=== PATIENT | female | born 1965 | race Two or more races ===

== ENCOUNTER 2016-12-14 10:16 | Emergency (ER) | payer BC, OTHER ==
[~2016-12-14] VITALS: Ht 160 cm; Wt 74.8 kg
[2016-12-14] MEDS ORDERED: KETOROLAC TROMETH 60MG/2ML VIAL IM ONE (10:45)
[2016-12-14 12:29] VITALS: BP 145/78
== END 2016-12-14 13:07 | disposition home or self-care (01) ==
LOC: ER 10:16
DX: M43.12 Spondylolisthesis, cervical region (principal); I10 Essential (primary) hypertension; R11.0 Nausea; R42 Dizziness and giddiness; Z90.49 Acquired absence of other specified parts of digestive tract
CPT/HCPCS: 70450; 70490; 96372; 99284; J1885

== ENCOUNTER 2017-03-05 11:41 | Inpatient (IN) | payer BC ==
[~2017-03-05] VITALS: Ht 160 cm; Wt 76.9 kg
[2017-03-05 12:32] LABS: Basophils # (auto) 0 uL; Basophils % (auto) 0.6 % (0.0-2.0); Eosinophils # (auto) 0.1 uL; Eosinophils % (auto) 1.1 % (0.0-7.0); Hematocrit 39.5 % (36.0-46.0); Hemoglobin 13.7 g/dL (12.2-16.2); Lymphocytes # (auto) 2.3 uL; Lymphocytes % (auto) 32.8 % (10.0-50.0); Mean Corpuscular Hemoglobin 30.9 pg (28.0-32.0); Mean Corpuscular Hgb Conc. 34.6 g/dL (32.0-36.0); Mean Corpuscular Volume 89.4 fL (80.0-100.0); Mean Platelet Volume 9.3 fL (6.9-10.8); Monocytes # (auto) 0.3 uL; Monocytes % (auto) 4.2 % (0.0-12.0); Neutrophils # (auto) 4.3 uL; Neutrophils % (auto) 61.3 % (37.0-80.0); Nucleated Red Blood Cells % 0.1 %; Platelet Count (auto) 204 10^3/uL (140-450); Red Cell Distribution Width 13.3 % (11.8-14.3)
[2017-03-05 12:41] LABS: Urine Bilirubin Negative (Negative); Urine Blood Negative /uL (Negative); Urine Color Yellow (Yellow); Urine Glucose Normal (Normal); Urine Ketone Negative (Negative); Urine Mucus FEW (None Seen); Urine Nitrite Negative (Negative); Urine RBC 1 /hpf (0 - 4); Urine Squamous Epithelial Cell FEW /hpf (<5)
[2017-03-05 12:47] LABS: Albumin 3.8 g/dL (3.4-5.0); BUN/Creatinine Ratio 15.1; Bilirubin, Total 0.4 mg/dL (0.2-1.0); Calcium 8.8 mg/dL (8.5-10.1); Potassium 3.6 mmol/L (3.5-5.1); Total Protein 7.7 g/dL (6.4-8.2)
[2017-03-05] MEDS ORDERED: SODIUM CHLORIDE 0.9% 1,000 ML IV ONE (13:35)
[2017-03-05 14:04] LABS: INR 0.92 (0.9-1.15); Partial Thromboplastin Time 26.1 sec (22.64-33.71)
[2017-03-05] MEDS ORDERED: LORazepam 2MG/ML-1ML VIAL IV PRN (14:30)
[2017-03-05] MEDS ORDERED: HYDROcodone-ACET 5/325MG TAB PO ONE (14:30)
[2017-03-05] MEDS ORDERED: ATORVASTATIN 20 MG TAB PO ONE (14:30)
[2017-03-05 14:34] LABS: Magnesium 2.3 mg/dL (1.6-2.6)
[2017-03-05] MEDS: ASPirin-EC 81 mg tab PO SCH (14:52)
[2017-03-05 14:56] LABS: Cholesterol 190 mg/dL (< 200); Triglycerides 545 mg/dL (< 150)
[2017-03-05 14:57] LABS: HDL Cholesterol 30 mg/dL (40-59)
[2017-03-05] MEDS: SODIUM CHLORIDE 0.9% 1,000 ML IV SCH (15:01)
[2017-03-05] MEDS ORDERED: MORPHINE SULF INJ 2 MG/ML SYRINGE 1ML IV PRN (15:15)
[2017-03-05] MEDS ORDERED: NITROGLYCERIN 0.4 MG SL TAB SL PRN (15:15)
[2017-03-05] MEDS ORDERED: cefTRIAXone 1GM/50ML D5W 50 ML IV ONE (15:15)
[2017-03-05] MEDS ORDERED: LACTULOSE 20Gm/30ML SOLN PO PRN (15:15)
[2017-03-05] MEDS ORDERED: ACETAMINOPHEN 500 MG TAB PO PRN (15:15)
[2017-03-05] MEDS ORDERED: LORazepam 0.5 MG TAB PO PRN (15:15)
[2017-03-05 17:15] VITALS: BP 117/74
[2017-03-05 17:17] VITALS: BP 117/74
[2017-03-05] MEDS: HYDROcodone-ACET 5/325MG TAB PO PRN (19:48)
[2017-03-05] MEDS: MORPHINE SULF INJ 2 MG/ML SYRINGE 1ML IV PRN (21:55)
[2017-03-05 22:00] VITALS: BP 117/65
[2017-03-05] MEDS: TEMAZEPAM 15 MG CAP PO PRN (23:26)
[2017-03-06] MEDS: LORazepam 2MG/ML-1ML VIAL IV PRN ×3 (00:57→20:13)
[2017-03-06 05:00] VITALS: BP 111/58
[2017-03-06] MEDS: SODIUM CHLORIDE 0.9% 1,000 ML IV SCH ×2 (06:19→16:09)
[2017-03-06] MEDS ORDERED: LEV100T PO (07:37)
[2017-03-06] MEDS ORDERED: OME20T PO (07:37)
[2017-03-06] MEDS ORDERED: LISI40TA PO (07:37)
[2017-03-06] MEDS ORDERED: AML5T PO (07:37)
[2017-03-06] MEDS ORDERED: HYDR-391 PO (07:37)
[2017-03-06 08:00] VITALS: BP 122/71
[2017-03-06 09:00] VITALS: BP 122/71
[2017-03-06] MEDS: cefTRIAXone 1GM/50ML D5W 50 ML IV SCH (09:49)
[2017-03-06] MEDS: ASPirin-EC 81 mg tab PO SCH (09:49)
[2017-03-06] MEDS: ENOXAPARIN SOD 40 MG/0.4 ML SYRINGE SC SCH (09:50)
[2017-03-06] MEDS ORDERED: METH-562 PO (09:57)
[2017-03-06] MEDS ORDERED: ALPR0.25 PO (09:57)
[2017-03-06 13:00] VITALS: BP_SYST 110; BP_SYST 120; BP_DIAS 53; BP_DIAS 72
[2017-03-06 17:00] VITALS: BP 114/74
[2017-03-06 22:00] VITALS: BP 138/79
[2017-03-06] MEDS: TEMAZEPAM 15 MG CAP PO PRN (22:07)
[2017-03-07 05:13] VITALS: BP 100/62
[2017-03-07] MEDS: LEVOTHYROXINE SODIUM 100 MCG TAB PO SCH (05:44)
[2017-03-07] MEDS: SODIUM CHLORIDE 0.9% 1,000 ML IV SCH ×2 (05:44→21:02)
[2017-03-07 07:23] VITALS: BP 115/71
[2017-03-07] MEDS: LORazepam 2MG/ML-1ML VIAL IV PRN (09:00)
[2017-03-07] MEDS: cefTRIAXone 1GM/50ML D5W 50 ML IV SCH (09:00)
[2017-03-07] MEDS: ASPirin-EC 81 mg tab PO SCH (09:46)
[2017-03-07] MEDS: amLODIPine BESYLATE 5 MG TAB PO SCH (09:47)
[2017-03-07] MEDS: METHOCARBAMOL 500 MG TAB PO SCH (09:48)
[2017-03-07] MEDS: LISINOPRIL 20 MG TAB PO SCH ×2 (09:52→11:01)
[2017-03-07] MEDS: ENOXAPARIN SOD 40 MG/0.4 ML SYRINGE SC SCH (09:52)
[2017-03-07] MEDS: HYDROcodone-ACET 5/325MG TAB PO PRN (11:02)
[2017-03-07] MEDS ORDERED: GADOPENTETATE DIMEGLUMINE (10MMOL/20 ML) VIAL IV ONE (11:39)
[2017-03-07] MEDS ORDERED: LORazepam 2MG/ML-1ML VIAL IV ONE (11:45)
[2017-03-07 13:35] VITALS: BP 107/74
[2017-03-07 17:10] VITALS: BP 120/71
[2017-03-07] MEDS: KETOROLAC TROMETH 30 MG/ML 1ML VIAL IV PRN (21:30)
[2017-03-07 22:00] VITALS: BP 121/82
[2017-03-07] MEDS: TEMAZEPAM 15 MG CAP PO PRN (22:22)
[2017-03-08 05:00] VITALS: BP 108/61
[2017-03-08] MEDS: SODIUM CHLORIDE 0.9% 1,000 ML IV SCH ×2 (05:26→18:22)
[2017-03-08] MEDS: LEVOTHYROXINE SODIUM 100 MCG TAB PO SCH (05:54)
[2017-03-08 08:57] VITALS: BP 106/62
[2017-03-08] MEDS: cefTRIAXone 1GM/50ML D5W 50 ML IV SCH (09:38)
[2017-03-08] MEDS: ASPirin-EC 81 mg tab PO SCH (09:38)
[2017-03-08] MEDS: METHOCARBAMOL 500 MG TAB PO SCH (09:39)
[2017-03-08] MEDS: ENOXAPARIN SOD 40 MG/0.4 ML SYRINGE SC SCH (09:40)
[2017-03-08] MEDS: amLODIPine BESYLATE 5 MG TAB PO SCH (09:49)
[2017-03-08 13:00] VITALS: BP 128/81
[2017-03-08] MEDS: KETOROLAC TROMETH 30 MG/ML 1ML VIAL IV PRN ×2 (14:45→16:51)
[2017-03-08 16:36] VITALS: BP 133/82
[2017-03-08] MEDS: MORPHINE SULF INJ 2 MG/ML SYRINGE 1ML IV PRN ×2 (16:52→21:36)
[2017-03-08] MEDS: METOCLOPRAMIDE HCL 10 MG TAB PO SCH (21:34)
[2017-03-08] MEDS: SERTRALINE HCL 50 MG TAB PO SCH (21:35)
[2017-03-08] MEDS: HYDROcodone-ACET 5/325MG TAB PO PRN (21:35)
[2017-03-08] MEDS: PROMETHAZINE HCL 25 MG/ML 1ML IV PRN (21:35)
[2017-03-08] MEDS: TEMAZEPAM 15 MG CAP PO PRN (21:35)
[2017-03-08] MEDS: DEXAMETHASONE INJECTION 10 MG in D5W 5% 50 ML IV SCH (21:37)
[2017-03-08 22:00] VITALS: BP 127/71
[2017-03-09 05:00] VITALS: BP 90/56
[2017-03-09] MEDS: METOCLOPRAMIDE HCL 10 MG TAB PO SCH ×2 (06:00→08:18)
[2017-03-09] MEDS: LEVOTHYROXINE SODIUM 100 MCG TAB PO SCH ×2 (06:00→08:19)
[2017-03-09] MEDS: SODIUM CHLORIDE 0.9% 1,000 ML IV SCH ×2 (06:02→19:07)
[2017-03-09 08:00] VITALS: BP 119/70
[2017-03-09 08:30] VITALS: BP 119/70
[2017-03-09] MEDS: LISINOPRIL 20 MG TAB PO SCH (09:29)
[2017-03-09] MEDS: ENOXAPARIN SOD 40 MG/0.4 ML SYRINGE SC SCH (09:29)
[2017-03-09] MEDS: cefTRIAXone 1GM/50ML D5W 50 ML IV SCH (09:29)
[2017-03-09] MEDS: ASPirin-EC 81 mg tab PO SCH (09:30)
[2017-03-09] MEDS: amLODIPine BESYLATE 5 MG TAB PO SCH (09:30)
[2017-03-09] MEDS: METHOCARBAMOL 500 MG TAB PO SCH (09:40)
[2017-03-09 12:07] LABS: Anticardiolipin IgM Antibody <9 MPL U/mL (0-12)
[2017-03-09] MEDS: HYDROcodone-ACET 5/325MG TAB PO PRN ×2 (12:09→20:56)
[2017-03-09] MEDS: PROMETHAZINE HCL 25 MG/ML 1ML IV PRN ×2 (12:09→20:57)
[2017-03-09] MEDS: MORPHINE SULF INJ 2 MG/ML SYRINGE 1ML IV PRN ×2 (12:09→20:57)
[2017-03-09 12:39] VITALS: BP 116/71
[2017-03-09 17:27] VITALS: BP 118/67
[2017-03-09] MEDS: SERTRALINE HCL 50 MG TAB PO SCH (20:56)
[2017-03-09] MEDS: DEXAMETHASONE INJECTION 10 MG in D5W 5% 50 ML IV SCH (20:57)
[2017-03-09] MEDS: TEMAZEPAM 15 MG CAP PO PRN (20:57)
[2017-03-09 23:16] VITALS: BP 124/77
[2017-03-10 03:07] LABS: Protein S Antigen Free 105 % (57-157); Proten S Antigen Total 94 % (60-150)
[2017-03-10] MEDS: PROMETHAZINE HCL 25 MG/ML 1ML IV PRN ×3 (05:00→14:09)
[2017-03-10] MEDS: HYDROcodone-ACET 5/325MG TAB PO PRN ×2 (05:00→14:09)
[2017-03-10] MEDS: MORPHINE SULF INJ 2 MG/ML SYRINGE 1ML IV PRN ×3 (05:00→14:10)
[2017-03-10 05:28] VITALS: BP 103/66
[2017-03-10] MEDS: SODIUM CHLORIDE 0.9% 1,000 ML IV SCH (05:47)
[2017-03-10] MEDS: LEVOTHYROXINE SODIUM 100 MCG TAB PO SCH (06:18)
[2017-03-10] MEDS: METOCLOPRAMIDE HCL 10 MG TAB PO SCH ×2 (06:19→06:21)
[2017-03-10] MEDS: KETOROLAC TROMETH 30 MG/ML 1ML VIAL IV PRN (06:20)
[2017-03-10 09:00] VITALS: BP 106/69
[2017-03-10] MEDS: METHOCARBAMOL 500 MG TAB PO SCH (09:28)
[2017-03-10] MEDS: cefTRIAXone 1GM/50ML D5W 50 ML IV SCH (09:28)
[2017-03-10] MEDS: amLODIPine BESYLATE 5 MG TAB PO SCH (09:29)
[2017-03-10] MEDS: ASPirin-EC 81 mg tab PO SCH (09:29)
[2017-03-10] MEDS: LISINOPRIL 20 MG TAB PO SCH (09:30)
[2017-03-10] MEDS: ENOXAPARIN SOD 40 MG/0.4 ML SYRINGE SC SCH (09:30)
[2017-03-10 13:00] VITALS: BP 99/53
[2017-03-10] MEDS ORDERED: CYANOCOBALAMIN (B-12) 1000 MCG/1 ML VIAL SUBCUT ONE (13:00)
[2017-03-10] MEDS ORDERED: CYAN100023 PO (13:02)
[2017-03-10] MEDS ORDERED: GEMF600T3 PO (13:02)
[2017-03-10] MEDS ORDERED: SERT-138 PO (13:08)
[2017-03-10 14:34] VITALS: BP 104/68
== END 2017-03-10 17:47 | disposition home or self-care (01) | DRG 103 ==
LOC: ER 11:41 → TELE 11:42 → TELE-WESTW 17:15 → WEST WING 03-08 04:14
PROVIDERS: ADMIT Internal Medicine; ATTEND Internal Medicine
DX: G43.909 Migraine, unspecified, not intractable, without status migrainosus (principal); G81.94 Hemiplegia, unspecified affecting left nondominant side; E03.9 Hypothyroidism, unspecified; I10 Essential (primary) hypertension; H53.8 Other visual disturbances; M79.7 Fibromyalgia; E53.8 Deficiency of other specified B group vitamins; E78.1 Pure hyperglyceridemia; F41.9 Anxiety disorder, unspecified; H54.62 Unqualified visual loss, left eye, normal vision right eye; E66.3 Overweight; R29.810 Facial weakness; Z83.3 Family history of diabetes mellitus; Z82.3 Family history of stroke; Z82.49 Family history of ischemic heart disease and other diseases of the circulatory system; Z90.710 Acquired absence of both cervix and uterus; Z90.49 Acquired absence of other specified parts of digestive tract; Z68.30 Body mass index [BMI] 30.0-30.9, adult; Z79.82 Long term (current) use of aspirin; Z79.899 Other long term (current) drug therapy; Z98.51 Tubal ligation status
CPT/HCPCS: 36415; 70450; 70553; 71020; 80053; 80061; 80307; 81001; 81241; 82550; 82607; 82962; 83735; 84439; 84443; 84481; 84484; 85025; 85301; 85302; 85303; 85305; 85306; 85610; 85613; 85652; 85670; 85705; 85730; 85732; 86038; 86147; 87086; 93005; 93306; 93886; 94761; 96361; 96365; J0696; J1100; J1885; J7060

== ENCOUNTER → 2017-04-14 | Outpatient (CLI) | payer BC ==
[~2017-04-14] MED LIST: ALPR0.25 PO; CYAN100023 PO; GEMF600T3 PO; HYDR-391 PO; LEV100T PO; METH-562 PO; OME20T PO; SERT-138 PO
[2017-04-14 13:06] LABS: Basophils # (auto) 0 uL; Basophils % (auto) 0.7 % (0.0-2.0); Eosinophils # (auto) 0.1 uL; Eosinophils % (auto) 1.4 % (0.0-7.0); Hematocrit 38.4 % (36.0-46.0); Hemoglobin 13.1 g/dL (12.2-16.2); Lymphocytes # (auto) 2.3 uL; Lymphocytes % (auto) 34.6 % (10.0-50.0); Mean Corpuscular Hemoglobin 30.7 pg (28.0-32.0); Mean Corpuscular Hgb Conc. 34.1 g/dL (32.0-36.0); Mean Corpuscular Volume 90.1 fL (80.0-100.0); Mean Platelet Volume 10.7 fL (6.9-10.8); Monocytes # (auto) 0.3 uL; Monocytes % (auto) 4.2 % (0.0-12.0); Neutrophils % (auto) 59.1 % (37.0-80.0); Platelet Count (auto) 199 10^3/uL (140-450); Red Cell Distribution Width 13.8 % (11.8-14.3); White Blood Cell 6.8 10^3/uL (4.4-10.8)
[2017-04-14 13:08] LABS: Albumin 3.7 g/dL (3.4-5.0); BUN/Creatinine Ratio 9.5; Calcium 9.2 mg/dL (8.5-10.1); Potassium 4.1 mmol/L (3.5-5.1)
[2017-04-14 13:11] LABS: Bilirubin, Total 0.4 mg/dL (0.2-1.0); Total Protein 7.6 g/dL (6.4-8.2)
[2017-04-14 15:18] LABS: Urine Bilirubin Negative (Negative); Urine Blood Negative /uL (Negative); Urine Color Yellow (Yellow); Urine Glucose Normal (Normal); Urine Ketone Negative (Negative); Urine Mucus FEW (None Seen); Urine Nitrite Negative (Negative); Urine RBC 2 /hpf (0 - 4); Urine Squamous Epithelial Cell FEW /hpf (<5); Urine Urobilinogen Normal (Negative); Urine pH 5.5 (5.0-8.0)
== END | disposition home or self-care (01) ==
LOC: LAB 11:36
PROVIDERS: ATTEND Nurse Practitioner
DX: I10 Essential (primary) hypertension (principal); H53.9 Unspecified visual disturbance; E03.9 Hypothyroidism, unspecified; R29.810 Facial weakness
CPT/HCPCS: 36415; 80053; 81001; 84443; 84481; 85025

== ENCOUNTER → 2017-04-18 | Outpatient (CLI) | payer BC ==
[2017-04-18 14:42] LABS: Albumin 3.7 g/dL (3.4-5.0); BUN/Creatinine Ratio 8.3; Bilirubin, Total 0.5 mg/dL (0.2-1.0); Calcium 8.8 mg/dL (8.5-10.1); Potassium 3.9 mmol/L (3.5-5.1); Total Protein 7.7 g/dL (6.4-8.2)
== END | disposition home or self-care (01) ==
LOC: LAB 12:23
PROVIDERS: ATTEND Nurse Practitioner
DX: N18.3 Chronic kidney disease, stage 3 (moderate) (principal); R79.89 Other specified abnormal findings of blood chemistry
CPT/HCPCS: 36415; 80053; 83036

== ENCOUNTER → 2017-05-19 | Outpatient (CLI) | payer BC ==
[~2017-05-19] MED LIST changes: -HYDR-391 PO; +HYDR-392 PO
== END | disposition home or self-care (01) ==
LOC: LAB 16:19
PROVIDERS: ATTEND Internal Medicine
DX: N39.0 Urinary tract infection, site not specified (principal)
CPT/HCPCS: 87086

== ENCOUNTER → 2017-05-27 | Outpatient (CLI) | payer BC ==
[2017-05-27 11:28] LABS: Basophils # (auto) 0 uL; Basophils % (auto) 0.3 % (0.0-2.0); Eosinophils # (auto) 0.1 uL; Eosinophils % (auto) 1.4 % (0.0-7.0); Hemoglobin 13.9 g/dL (12.2-16.2); Lymphocytes # (auto) 2.8 uL; Lymphocytes % (auto) 40.9 % (10.0-50.0); Mean Corpuscular Hemoglobin 30.6 pg (28.0-32.0); Mean Corpuscular Volume 90.1 fL (80.0-100.0); Monocytes # (auto) 0.3 uL; Monocytes % (auto) 4.7 % (0.0-12.0); Neutrophils # (auto) 3.6 uL; Neutrophils % (auto) 52.7 % (37.0-80.0); Nucleated Red Blood Cells % 0.1 %; Platelet Count (auto) 232 10^3/uL (140-450); Red Blood Cells 4.55 10^6/uL (4.0-5.20); Red Cell Distribution Width 13.4 % (11.8-14.3); White Blood Cell 6.9 10^3/uL (4.4-10.8)
== END | disposition home or self-care (01) ==
LOC: LAB 10:50
PROVIDERS: ATTEND Family Medicine
DX: H53.9 Unspecified visual disturbance (principal)
CPT/HCPCS: 36415; 85025; 85652; 86141; 86225; 86235

== ENCOUNTER → 2017-06-15 | Outpatient (CLI) | payer BC ==
[2017-06-15 15:35] LABS: Urine Bacteria NONE SEEN /hpf (None Seen); Urine Blood Negative /uL (Negative); Urine Specific Gravity 1.003 (1.001-1.035); Urine WBC 1 /hpf (0 - 5)
[2017-06-15 15:39] LABS: Basophils # (auto) 0.1 uL; Basophils % (auto) 0.9 % (0.0-2.0); Eosinophils # (auto) 0.1 uL; Eosinophils % (auto) 1.4 % (0.0-7.0); Hematocrit 39.6 % (36.0-46.0); Hemoglobin 13.5 g/dL (12.2-16.2); Lymphocytes # (auto) 2.5 uL; Mean Corpuscular Hemoglobin 30.8 pg (28.0-32.0); Mean Corpuscular Volume 90.5 fL (80.0-100.0); Monocytes # (auto) 0.4 uL; Monocytes % (auto) 5.4 % (0.0-12.0); Neutrophils # (auto) 3.5 uL; Neutrophils % (auto) 54.3 % (37.0-80.0); Nucleated Red Blood Cells % 0.1 %; Platelet Count (auto) 240 10^3/uL (140-450); Red Blood Cells 4.37 10^6/uL (4.0-5.20); White Blood Cell 6.5 10^3/uL (4.4-10.8)
[2017-06-15 16:13] LABS: BUN/Creatinine Ratio 12.5; Calcium 8.8 mg/dL (8.5-10.1); Potassium 3.3 mmol/L (3.5-5.1); Uric Acid 4.3 mg/dL (2.6-6.0)
[2017-06-15 16:15] LABS: Creatinine, Urine 53 mg/dL (30.0-125.0); Protein, Urine < 5.0 mg/dL (0.0-11.9)
[2017-06-16 09:13] LABS: Hepatitis B Surface Antibody Negative
[2017-06-16 09:32] LABS: Hepatitis B Surface Antigen Negative (Negative)
[2017-06-16 09:53] LABS: Hepatitis C Antibody Negative (Negative)
== END | disposition home or self-care (01) ==
LOC: LAB 14:52
PROVIDERS: ATTEND Internal Medicine
DX: N18.3 Chronic kidney disease, stage 3 (moderate) (principal); D63.1 Anemia in chronic kidney disease; B17.9 Acute viral hepatitis, unspecified; M05.9 Rheumatoid arthritis with rheumatoid factor, unspecified; M10.9 Gout, unspecified; E55.9 Vitamin D deficiency, unspecified; R80.9 Proteinuria, unspecified; R79.82 Elevated C-reactive protein (CRP); R70.0 Elevated erythrocyte sedimentation rate
CPT/HCPCS: 36415; 80069; 81001; 82306; 82570; 83520; 84156; 84550; 85025; 85652; 86160; 86162; 86225; 86235; 86256; 86706; 86803; 87340

== ENCOUNTER 2017-12-28 01:48 | Emergency (ER) | payer BC, OTHER ==
[~2017-12-28] VITALS: Ht 160 cm; Wt 68.9 kg
[2017-12-28 02:26] LABS: Basophils # (auto) 0.2 uL; Basophils % (auto) 1.3 % (0.0-2.0); Eosinophils # (auto) 0 uL; Eosinophils % (auto) 0.2 % (0.0-7.0); Hematocrit 40.6 % (36.0-46.0); Hemoglobin 14.3 g/dL (12.2-16.2); Lymphocytes # (auto) 3.2 uL; Mean Corpuscular Hemoglobin 30.8 pg (28.0-32.0); Mean Corpuscular Hgb Conc. 35.2 g/dL (32.0-36.0); Mean Corpuscular Volume 87.3 fL (80.0-100.0); Monocytes # (auto) 0.6 uL; Neutrophils # (auto) 7.8 uL; Neutrophils % (auto) 66.5 % (37.0-80.0); Nucleated Red Blood Cells % 0.1 %; Platelet Count (auto) 250 10^3/uL (140-450); Red Blood Cells 4.65 10^6/uL (4.0-5.20); Red Cell Distribution Width 14.2 % (11.8-14.3); White Blood Cell 11.8 10^3/uL (4.4-10.8)
[2017-12-28 02:38] LABS: INR 0.91 (0.9-1.15); Partial Thromboplastin Time 24.1 sec (23.78-33.04); Prothrombin Time 9.8 sec (9.27-12.13)
[2017-12-28 02:43] LABS: Albumin 3.8 g/dL (3.4-5.0); BUN/Creatinine Ratio 7.1; Calcium 8.8 mg/dL (8.5-10.1)
[2017-12-28 02:52] LABS: Bilirubin, Total 0.4 mg/dL (0.2-1.0); Total Protein 8.1 g/dL (6.4-8.2)
[2017-12-28] MEDS ORDERED: ONDANSETRON HCL 4 MG/2 ML VIAL IV ONE ×2 (03:15→05:00)
[2017-12-28] MEDS ORDERED: MORPHINE SULFATE 4 MG/ML SYR/VIAL IV ONE (03:15)
[2017-12-28] MEDS ORDERED: LORazepam 2MG/ML-1ML VIAL IV ONE (03:45)
[2017-12-28] MEDS ORDERED: HYDROmorphone HCL 2 MG/ML VL IV ONE (05:00)
[2017-12-28] MEDS ORDERED: IOHEXOL 350 MG/ML 100ML IJ ONE (05:17)
[2017-12-28 06:00] VITALS: BP 117/53
== END 2017-12-28 06:29 | disposition home or self-care (01) ==
LOC: EDBD 01:48 → ER 01:52
DX: J44.1 Chronic obstructive pulmonary disease with (acute) exacerbation (principal); I10 Essential (primary) hypertension; Z86.73 Personal history of transient ischemic attack (TIA), and cerebral infarction without residual deficits; Z90.49 Acquired absence of other specified parts of digestive tract; Z90.89 Acquired absence of other organs; Z79.899 Other long term (current) drug therapy
CPT/HCPCS: 36415; 71045; 71275; 80053; 83735; 84443; 84484; 85025; 85379; 85610; 85730; 93005; 94761; 96374; 96375; 96376; 99285; J1170; J2060; J2270; J2405; Q9967

== ENCOUNTER 2018-05-12 18:44 | Emergency (ER) | payer MEDICAID ==
[~2018-05-12] VITALS: Ht 160 cm; Wt 68.0 kg
[~2018-05-12 18:44] MED LIST changes: -GEMF600T3 PO; +GEMF600T7 PO
[2018-05-12] MEDS ORDERED: HYDROmorphone HCL 2 MG/ML VL IV ONE ×2 (20:00→21:00)
[2018-05-12 22:02] VITALS: BP 121/79
[2018-05-12] MEDS ORDERED: KETOROLAC TROMETH 30 MG/ML 1ML VIAL IV ONE (22:30)
[2018-05-13] MEDS ORDERED: ACETAMINOPHEN IV 100 ML IV ONE (03:26)
== END 2018-05-12 23:00 | disposition home or self-care (01) ==
LOC: ER 18:44
DX: T85.43XA Leakage of breast prosthesis and implant, initial encounter (principal); I10 Essential (primary) hypertension; Z86.73 Personal history of transient ischemic attack (TIA), and cerebral infarction without residual deficits; Z90.49 Acquired absence of other specified parts of digestive tract
CPT/HCPCS: 76642; 96374; 96375; 96376; 99284; J1170; J1885